=== PATIENT | female | born 1990 | race Caucasian/White ===

== ENCOUNTER 2018-08-05 16:48 | Emergency (ER) | payer SELFPAY ==
--- NOTE | 2018-08-05 16:55 | NUR ---
CALLED PT NAME IN LOBBY AT THIS TIME, NO RESPONSE
--- NOTE | 2018-08-05 17:21 | NUR ---
PATIENT LEFT WITHOUT BEING SEEN BY DR. WEBSTER. NO FURTHER CARE PROVIDED FOR PATIENT.
--- NOTE | 2018-08-05 17:54 | NUR ---
CALLED PT NAME IN LOBBY, PT STATED SHE WAS GOING HOME.
--- NOTE | 2018-08-05 17:55 | NUR ---
PATIENT LEFT WITHOUT BEING SEEN BY DR. WEBSTER. NO FURTHER CARE PROVIDED FOR PATIENT.
== END 2018-08-05 16:55 | disposition left against medical advice (07) ==
LOC: MED 16:48
DX: N89.8 Other specified noninflammatory disorders of vagina (principal); Z53.21 Procedure and treatment not carried out due to patient leaving prior to being seen by health care provider